=== PATIENT | female | born 1965 | race Caucasian/White ===

== ENCOUNTER → 2020-02-11 13:29 | Outpatient (CLI) | payer BC, SELFPAY ==
--- NOTE | ~2020-02-11 | MM_ITS ---
EXAMINATION: MM screening lenora BI w skye HISTORY: Screening mammogram TECHNIQUE: Craniocaudal and mediolateral oblique 3-D tomosynthesis images were obtained and synthetic 2-D images were generated. CAD analysis was submitted and interpreted. COMPARISON: 01/01/2015 bilateral digital screening mammogram BREAST PARENCHYMAL COMPOSITION: There are scattered areas of fibroglandular density. FINDINGS: There is no evidence of suspicious mass, calcification, or architectural distortion to sugg est malignancy in either breast. There has been no suspicious interval change. IMPRESSION: 1. No mammographic evidence of malignancy. 2. Recommend routine screening mammography in one year. BI-RADS Category 1: Negative Reviewed, dictated and finalized at location A.
== END ==
PROVIDERS: PCP Family Medicine Adolescent Medicine; Visit Provider Family Medicine Adolescent Medicine
DX: Z12.31 Encounter for screening mammogram for malignant neoplasm of breast (principal)
CPT/HCPCS: 77063; 77067

== ENCOUNTER 2024-04-27 12:17 | Outpatient (CLI) | payer BC, SELFPAY ==
--- NOTE | ~2024-04-27 | MM_ITS ---
EXAMINATION: MM screening lenora BI w skye HISTORY: Screening TECHNIQUE: Craniocaudal and mediolateral oblique 3-D tomosynthesis images were obtained and synthetic 2-D images were generated. CAD analysis was submitted and interpreted. COMPARISON: Comparison to multiple prior studies sequentially, with oldest reviewed study dated 01/01. BREAST PARENCHYMAL COMPOSITION: Not Dense: The breasts are almost entirely fatty. FINDINGS: There is no evidence of suspicious mass, calcification, or architectural distortion to sugg est malignancy in either breast. There has been no suspicious interval change. IMPRESSION: 1. No mammographic evidence of malignancy. 2. Recommend routine screening mammography in one year. BI-RADS Category 1: Negative Reviewed, dictated and finalized at location B. [employer]
== END 2024-04-27 12:18 | disposition home or self-care (01) ==
LOC: MICIMG 12:18
PROVIDERS: PCP Family Medicine Adolescent Medicine; Visit Provider Nurse Practitioner Family
DX: Z12.31 Encounter for screening mammogram for malignant neoplasm of breast (principal)
CPT/HCPCS: 77063; 77067

== ENCOUNTER 2024-05-11 01:31 | Day surgery (SDC) | payer BC, SELFPAY ==
[2024-04-30 15:12] VITALS: BMI 26.3
[2024-05-11 09:09] VITALS: BP 111/65; PULSE 78; RESP 18; TEMP 36.3; O2SAT 100
[2024-05-11] MEDS: LACTATED RINGERS 1,000 ML 150 ML IV CONT (09:17)
--- NOTE | 2024-05-11 09:18 | WPDANESEPPF ---
Anes - Initial Pre Proc Eval Procedure: Operation Date: 05/11/24 10:30 Proposed Procedures p Screening Colonoscopy - Huan Richardson MD Date/Time: 05/11/24 09:18 Surgeon: Huan Richardson MD Pre Op Diagnosis: Hx colon polyps Patient Data Age: 58 Gender: F Height: 1.68 m Weight: 71.7 kg Last Vital Signs Temp 36.3 C L 05/11/24 09:09 Pulse 78 05/11/24 09:09 Resp 18 05/11/24 09:09 BP 111/65 05/11/24 09:09 Pulse Ox 100 05/11/24 09:09 O2 Del Method Room Air 05/11/24 09:09 Allergies Allergy/AdvReac Type Severity Reaction Status Date / Time morphine Allergy Mild vomiting Verified 05/11/24 09:07 iodine Allergy Unknown Hives Verified 05/11/24 09:07 Penicillins Allergy Unknown Rash Verified 05/11/24 09:07 SULFAMETHOXAZOLE (Generic Allergy Rash Uncoded 05/11/24 09:07 Allergy) Home Medications ?Medication ?Instructions ?Recorded ?Confirmed ?Type cholecalciferol (vitamin D3) 50 50 mcg PO DAILY 02/24/24 05/11/24 History mcg (2,000 unit) capsule estradiol 0.01% (0.1 mg/gram) 1 g vaginal 2XW #42.5 grams 02/24/24 05/11/24 Rx vaginal cream mecobalamin (vitamin B12) 500 mcg 500 mcg PO DAILY 02/24/24 05/11/24 History chewable tablet omeprazole 20 mg capsule,delayed 20 mg PO PRN PRN Indigestion 04/30/24 05/11/24 History release Patient hx anesthesia problems: none Family hx anesthesia problems: none Results Review: All pre-operative results and documents have been reviewed as part of the pre-operative evaluation. 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 Informed Consent: The patient's anesthetic plan and its attendant risks and benefits were discussed with the patient/family/POA. Questions were solicited and answers provided to the satisfaction of the patient/family/POA.
--- NOTE | 2024-05-11 09:34 | PM.IMHP ---
H&P: HPI History of Present Illness Date/Time: 05/11/24 09:34 Chief Complaint: History of colon polyps Narrative: The patient has a history of colonic polyps, the last colonoscopy was 6 years ago. There is no family history of colon cancer ;she is asymptomatic from a GI standpoint Review of Systems Review of Systems: All systems reviewed & are unremarkable except as noted in HPI and below PMFSH Past Medical History Medical History (Updated 05/10/24 @ 13:03 by Billy Vieyra DO) Diverticulosis GERD (gastroesophageal reflux disease) Colon polyps Surgical History Surgical History (Updated 05/10/24 @ 13:03 by Billy Vieyra DO) History of tubal ligation Family History Family History Father Emphysema lung Mother Hypertension Schizophrenia Sibling Rheumatoid arthritis Social History Social History (System 02/09/24 @ 08:03 by Arpan Matthews) Smoking status: Never smoker Tobacco type: cigarettes Alcohol intake: current Occupation/Education: occupation 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 Home Medications and Allergies Home Medications ?Medication ?Instructions ?Recorded ?Confirmed ?Type cholecalciferol (vitamin D3) 50 50 mcg PO DAILY 02/24/24 05/11/24 History mcg (2,000 unit) capsule estradiol 0.01% (0.1 mg/gram) 1 g vaginal 2XW #42.5 grams 02/24/24 05/11/24 Rx vaginal cream mecobalamin (vitamin B12) 500 mcg 500 mcg PO DAILY 02/24/24 05/11/24 History chewable tablet omeprazole 20 mg capsule,delayed 20 mg PO PRN PRN Indigestion 04/30/24 05/11/24 History release Allergies Allergy/AdvReac Type Severity Reaction Status Date / Time morphine Allergy Mild vomiting Verified 05/11/24 09:07 iodine Allergy Unknown Hives Verified 05/11/24 09:07 Penicillins Allergy Unknown Rash Verified 05/11/24 09:07 SULFAMETHOXAZOLE (Generic Allergy Rash Uncoded 05/11/24 09:07 Allergy) Vital Signs Vital Signs - 24 hr 05/11/24 09:09 Temperature 97.3 F L Pulse Rate 78 Respiratory Rate 18 Blood Pressure 111/65 Pulse Oximetry 100 Oxygen Delivery Room Air Exam Const: General: cooperative and healthy appearing Resp: Effort & Inspection: normal respiratory effort and able to speak in complete sentences Auscultation: clear to auscultation bilaterally Cardio: Rate: regular rate Rhythm: regular rhythm GI: Inspection: normal to inspection GI Palp: No No hepatosplenomegaly present Auscultation: normal bowel sounds Rectal Exam: deferred Skin: General skin exam: normal color Psych: Appearance: grossly normal Mental Status: mental status grossly normal Assessment and Plan Assessment and plan (1) Hx of colonic polyps: Code(s): Z86.0100 - Personal history of colon polyps, unspecified Status: Acute Assessment and Plan: The patient is deemed a good candidate for the procedure. Consent signed. Will proceed.
[2024-05-11 09:52] VITALS: BP 116/62; PULSE 85; RESP 16; O2SAT 98
--- NOTE | 2024-05-11 09:56 | PM.IMHP ---
H&P: HPI History of Present Illness Date/Time: 05/11/24 09:56 Chief Complaint: Iron deficiency anemia Narrative: this patient has been seen in our office 2 months ago. She has a history of gastric bypass several years ago and was found to have recurrent iron deficiency anemia despite iron infusions. At 1 point she described having had rectal bleeding. She is here for evaluation, EGD and colonoscopy. Review of Systems Review of Systems: All systems reviewed & are unremarkable except as noted in HPI and below PMFSH Past Medical History Medical History (Updated 05/11/24 @ 09:57 by Huan Richardson MD) Diverticulosis GERD (gastroesophageal reflux disease) Colon polyps Surgical History Surgical History (Updated 05/10/24 @ 13:03 by Billy Vieyra DO) History of tubal ligation Family History Family History Father Emphysema lung Mother Hypertension Schizophrenia Sibling Rheumatoid arthritis Social History Social History (System 02/09/24 @ 08:03 by Arpan Matthews) Smoking status: Never smoker Tobacco type: cigarettes Alcohol intake: current Occupation/Education: occupation 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 Home Medications and Allergies Home Medications ?Medication ?Instructions ?Recorded ?Confirmed ?Type cholecalciferol (vitamin D3) 50 50 mcg PO DAILY 02/24/24 05/11/24 History mcg (2,000 unit) capsule estradiol 0.01% (0.1 mg/gram) 1 g vaginal 2XW #42.5 grams 02/24/24 05/11/24 Rx vaginal cream mecobalamin (vitamin B12) 500 mcg 500 mcg PO DAILY 02/24/24 05/11/24 History chewable tablet omeprazole 20 mg capsule,delayed 20 mg PO PRN PRN Indigestion 04/30/24 05/11/24 History release Allergies Allergy/AdvReac Type Severity Reaction Status Date / Time morphine Allergy Mild vomiting Verified 05/11/24 09:07 iodine Allergy Unknown Hives Verified 05/11/24 09:07 Penicillins Allergy Unknown Rash Verified 05/11/24 09:07 SULFAMETHOXAZOLE (Generic Allergy Rash Uncoded 05/11/24 09:07 Allergy) Vital Signs Vital Signs - 24 hr 05/11/24 09:09 Temperature 97.3 F L Pulse Rate 78 Respiratory Rate 18 Blood Pressure 111/65 Pulse Oximetry 100 Oxygen Delivery Room Air Exam Const: General: cooperative and healthy appearing Resp: Effort & Inspection: normal respiratory effort and able to speak in complete sentences Auscultation: clear to auscultation bilaterally Cardio: Rate: regular rate Rhythm: regular rhythm GI: Inspection: normal to inspection GI Palp: No No hepatosplenomegaly present Auscultation: normal bowel sounds Rectal Exam: deferred Skin: General skin exam: normal color Psych: Appearance: grossly normal Mental Status: mental status grossly normal Assessment and Plan Assessment and plan (1) Hx of colonic polyps: Code(s): Z86.0100 - Personal history of colon polyps, unspecified Status: Acute (2) Iron deficiency anemia: Code(s): D50.9 - Iron deficiency anemia, unspecified Status: Acute Assessment and Plan: The patient has noted deficiency is multifactorial, taking into account gastric bypass by itself can be an explanation. However, will perform EGD to rule out anastomotic ulcers or erosive gastritis. Due to history of colonic polyps, a colonoscopy will also be performed. The patient is deemed a good candidate for the procedures. Consent signed. Will proceed.
[2024-05-11 10:02] VITALS: BP 104/62; PULSE 78; RESP 19; O2SAT 100
[2024-05-11 10:12] VITALS: BP 108/57; PULSE 71; RESP 19; O2SAT 100
== END 2024-05-11 10:20 | disposition home or self-care (01) ==
PROVIDERS: PCP Family Medicine Adolescent Medicine; Referring Provider Nurse Practitioner Family; Visit Provider Internal Medicine Gastroenterology
PROC: 0DJD8ZZ Inspection of Lower Intestinal Tract, Via Natural or Artificial Opening Endoscopic (ICD-10-PCS; CPT 45378; principal; 2024-05-11 10:30)
DX: Z12.11 Encounter for screening for malignant neoplasm of colon (principal); K63.5 Polyp of colon; K57.30 Diverticulosis of large intestine without perforation or abscess without bleeding; K64.8 Other hemorrhoids
CPT/HCPCS: 45385; 88305; J2704; J7120

== ENCOUNTER 2024-09-21 07:16 | Outpatient (CLI) | payer BC, SELFPAY ==
--- NOTE | ~2024-09-21 | DEXA_ITS ---
Bone Density Report Name: DK KRISHNAMURTHY Age: 59 Sex: Female Ethnicity: White Date of : 1965 Indication: postmenopausal; screening for osteoporosis; Referring Provider: MARISOL JAY Study: Bone densitometry was performed. Exam Date: September 21, 2024 Accession number: [id number] Bone Density: Region BMD T-score Z-score Classification AP Spine(L1-L4) 0.936 -1.0 0.4 Normal Femoral Neck (Left) 0.803 -0.4 0.9 Normal Total Hip (Left) 0.987 0.4 1.3 Normal Femoral Neck (Right) 0.853 0.0 1.3 Normal Total Hip (Right) 0.949 0.1 1.0 Normal Total Hip Mean 0.968 0.3 1.2 Normal World Health Organization criteria for BMD impression classify patients as: Normal (T-score at or above -1.0), Osteopenia (T-score between -1.0 and -2.5), or Osteoporosis (T-score at or below -2.5). 10-year Fracture Risk: FRAX not reported because: All T-scores for Spine Total, Hip Total, Femoral Neck at or above -1.0 Clinical Information Provided by Patient: Has used the following medications: Vitamin D Patient maximum height was 66.5 Menopause Age: 51 No regular weight bearing exercise Does not regularly consume dairy products Drinks caffeinated beverages Onset of menses at age 12 Number of children 2 Impression: The patient has normal bone mass. Discussion: BONE DENSITY IS ABOVE THE MINIMUM DESIRABLE LEVEL AT ALL SKELETAL SITES TESTED. This patient?s bone mineral density is above the minimum desirable level (T-score -1.0 or better) at all sites measured. The patient should follow a healthful lifestyle (good nutrition with adequate calcium and vitamin D, and appropriate weight-bearing exercise). Follow-Up: Consider repeating this study in 5 years or sooner if there is some new clinical indication. Reported by: LIEN on 09/21/2024 7:49:00 AM. Reviewed, dictated and finalized at location A.
== END 2024-09-21 07:17 | disposition home or self-care (01) ==
LOC: ANHIMG 07:18
PROVIDERS: PCP Family Medicine Adolescent Medicine; Visit Provider Nurse Practitioner Family
DX: Z78.0 Asymptomatic menopausal state (principal); Z13.820 Encounter for screening for osteoporosis
CPT/HCPCS: 77080

== ENCOUNTER 2025-05-03 10:07 | Outpatient (CLI) | payer BC, SELFPAY ==
--- NOTE | ~2025-05-03 | MM_ITS ---
EXAMINATION: MM screening lenora BI w skye HISTORY: Screening. TECHNIQUE: Craniocaudal and mediolateral oblique 3-D tomosynthesis images were obtained and synthetic 2-D images were generated. CAD analysis was submitted and interpreted. COMPARISON: 2023 and 2019. BREAST PARENCHYMAL COMPOSITION: Not Dense: There are scattered areas of fibroglandular FINDINGS: No suspicious masses are seen. There are no suspicious calcifications. No unexplained architectural distortion is seen. There are no skin or nipple abnormalities identified. There is no adenopathy seen on the images submitted. IMPRESSION: No mammographic evidence to suggest malignancy is seen. The patient may return to screening mammography as per ACR guidelines. BI-RADS 1 - Negative. Reviewed, dictated and finalized at location C. [facility] [employer]
== END 2025-05-03 10:08 | disposition home or self-care (01) ==
LOC: MICIMG 10:08
PROVIDERS: PCP Family Medicine Adolescent Medicine; Visit Provider Family Medicine Adolescent Medicine
DX: Z12.31 Encounter for screening mammogram for malignant neoplasm of breast (principal)
CPT/HCPCS: 77063; 77067